=== PATIENT | female | born 1965 | race Caucasian/White ===

== ENCOUNTER 2018-11-15 09:42 | Outpatient (CLI) | payer OTHER | END 2018-11-15 13:40 | disposition home or self-care (01) | LOC: LAB 09:42 | DX: E03.8 Other specified hypothyroidism (principal); E34.8 Other specified endocrine disorders; N95.1 Menopausal and female climacteric states; E78.00 Pure hypercholesterolemia, unspecified; E55.9 Vitamin D deficiency, unspecified; E53.8 Deficiency of other specified B group vitamins; R73.01 Impaired fasting glucose; N39.0 Urinary tract infection, site not specified ==

== ENCOUNTER 2018-12-25 10:50 | Outpatient (CLI) | payer OTHER ==
[~2018-12-25] VITALS: Ht 162.6 cm; Wt 66.2 kg
== END 2018-12-25 11:10 | disposition home or self-care (01) ==
LOC: OFIC 805 10:50
DX: R04.0 Epistaxis (principal)

== ENCOUNTER 2019-02-03 09:54 | Outpatient (CLI) | payer OTHER | END 2019-02-03 10:15 | disposition home or self-care (01) | LOC: LAB 09:54 | DX: N95.1 Menopausal and female climacteric states (principal); E34.8 Other specified endocrine disorders ==

== ENCOUNTER → 2019-02-03 | Outpatient (CLI) | payer OTHER | END | disposition home or self-care (01) | LOC: OFIC 805 02-02 11:00 | DX: C73 Malignant neoplasm of thyroid gland (principal); J34.2 Deviated nasal septum; J31.0 Chronic rhinitis; E83.51 Hypocalcemia; E20.8 Other hypoparathyroidism; F84.5 Asperger's syndrome; J38.01 Paralysis of vocal cords and larynx, unilateral; R49.0 Dysphonia; N28.89 Other specified disorders of kidney and ureter ==

== ENCOUNTER 2019-03-04 08:59 | Outpatient (CLI) | payer OTHER ==
[~2019-03-04] VITALS: Ht 152.4 cm; Wt 66.2 kg
[~2019-03-04 08:59] MED LIST: AFRIN15 ML NASAL; AYR SALINE NA14.1 GM NASAL
== END 2019-03-04 12:49 | disposition home or self-care (01) ==
LOC: OFIC 805 08:59
DX: J31.0 Chronic rhinitis (principal); R04.0 Epistaxis

== ENCOUNTER 2019-03-18 08:46 | Outpatient (CLI) | payer OTHER | END 2019-03-18 08:52 | disposition home or self-care (01) | LOC: MAMO-SONO 08:46 | DX: Z12.31 Encounter for screening mammogram for malignant neoplasm of breast (principal); N64.4 Mastodynia; Z87.898 Personal history of other specified conditions ==

== ENCOUNTER 2020-03-24 10:34 | Outpatient (CLI) | payer OTHER | END 2020-03-24 10:48 | disposition home or self-care (01) | LOC: MAMO-SONO 10:34 | PROVIDERS: ATTEND Specialist | DX: Z12.31 Encounter for screening mammogram for malignant neoplasm of breast (principal); N60.11 Diffuse cystic mastopathy of right breast; N60.12 Diffuse cystic mastopathy of left breast ==

== ENCOUNTER 2020-08-09 09:07 | Outpatient (CLI) | payer OTHER | END 2020-08-09 09:33 | disposition home or self-care (01) | LOC: SONOGRAMA 09:07 → MAMO-SONO 09:45 | PROVIDERS: ATTEND Internal Medicine | DX: H25.89 Other age-related cataract (principal); S83.242A Other tear of medial meniscus, current injury, left knee, initial encounter; Z96.652 Presence of left artificial knee joint; Z01.810 Encounter for preprocedural cardiovascular examination; E78.89 Other lipoprotein metabolism disorders ==

== ENCOUNTER 2020-10-12 13:56 | Outpatient (CLI) | payer OTHER | END 2020-10-12 14:17 | disposition home or self-care (01) | LOC: MRI 13:56 | PROVIDERS: ATTEND Orthopaedic Surgery | DX: M25.562 Pain in left knee (principal); M23.92 Unspecified internal derangement of left knee | CPT/HCPCS: 73718 ==

== ENCOUNTER 2021-04-10 07:55 | Outpatient (CLI) | payer OTHER | END 2021-04-10 08:04 | disposition home or self-care (01) | LOC: MAMO-SONO 07:55 | PROVIDERS: ATTEND Specialist | DX: N60.11 Diffuse cystic mastopathy of right breast (principal); N60.12 Diffuse cystic mastopathy of left breast; Z12.31 Encounter for screening mammogram for malignant neoplasm of breast ==

== ENCOUNTER 2022-04-18 09:24 | Outpatient (CLI) | payer OTHER | END 2022-04-18 09:59 | disposition home or self-care (01) | LOC: MAMO-SONO 09:24 | PROVIDERS: ATTEND Specialist | DX: N60.11 Diffuse cystic mastopathy of right breast (principal); N60.12 Diffuse cystic mastopathy of left breast ==

== ENCOUNTER 2022-07-17 12:39 | Outpatient (CLI) | payer OTHER | END 2022-07-17 12:46 | disposition home or self-care (01) | LOC: SONOGRAMA 12:39 | PROVIDERS: ATTEND Specialist | DX: R10.2 Pelvic and perineal pain (principal) ==